=== PATIENT | female | born 1960 | race Caucasian/White ===

== ENCOUNTER 2017-03-07 08:44 | Emergency (ER) | payer OTHER ==
[2017-03-07 08:49] VITALS: BMI 24.6
--- NOTE | 2017-03-07 09:11 | PDOC ---
History of Present Illness - General History Source: Patient Exam Limitations: No Limitations - History of Present Illness Initial Comments: 03/07/17 09:35 The patient is a 56 year old female, with significant past medical history HLD, HTN, who presents today complaining of dizziness starting this morning. The patient states that she was drinking her morning coffee when she suddenly felt dizzy for less than a minute. She described the dizziness as the feeling you get when you come off of a rollercoaster. She reports that the dizziness subsided, but another episode occurred 5 minutes later. There was no fall or LOC , but she had brace herself against the wall. Denies LOC. Denies recent head injury or any trauma. Denies nausea, vomiting. Denies any recent illness. Denies chest pain, SOB, cough. Allergies: Sulfa PCP- Dr. Rosi Whiteside 03/07/17 09:59 <Brittany Arango - Last Filed: 03/07/17 10:59> <Mega Paris - Last Filed: 03/07/17 11:32> - General Chief Complaint: Lightheaded Stated Complaint: DIZZINESS Time Seen by Provider: 03/07/17 09:10 Past History <Brittany Arango - Last Filed: 03/07/17 10:59> - Past Medical History HTN: Yes Hypercholesterolemia: Yes - Surgical History Abdominal Surgery: Yes (colon polyps) - Psycho/Social/Smoking Cessation Hx Anxiety: No Suicidal Ideation: No Smoking History: Never smoked Have you smoked in the past 12 months: No Information on smoking cessation initiated: No Hx Alcohol Use: No Drug/Substance Use Hx: No Substance Use Type: None <Mega Paris - Last Filed: 03/07/17 11:32> - Past Medical History Allergies/Adverse Reactions: Allergies Allergy/AdvReac Type Severity Reaction Status Date / Time Sulfa (Sulfonamide Allergy Intermediate Rash Unverified 03/07/17 08:46 Antibiotics) Home Medications: Ambulatory Orders Hydrochlorothiazide 0 mg PO DAILY 03/07/17 Meclizine HCl [Antivert -] 25 mg PO TID #90 tablet 03/07/17 Simvastatin 20 mg PO HS 03/07/17 Review of Systems - Review of Systems Able to Perform ROS?: Yes Comments:: 03/07/17 09:36 GENERAL/CONSTITUTIONAL: No fever or chills. No weakness. HEAD, EYES, EARS, NOSE AND THROAT: No change in vision. No ear pain or discharge. No sore throat. CARDIOVASCULAR: No chest pain or shortness of breath. RESPIRATORY: No cough, wheezing, or hemoptysis. GASTROINTESTINAL: No nausea, vomiting, diarrhea or constipation. GENITOURINARY: No dysuria, frequency, or change in urination. MUSCULOSKELETAL: No joint or muscle swelling or pain. No neck or back pain. SKIN: No rash NEUROLOGIC: Yes: dizziness. No headache, vertigo, loss of consciousness, or change in strength/sensation. ENDOCRINE: No increased thirst. No abnormal weight change. HEMATOLOGIC/LYMPHATIC: No anemia, easy bleeding, or history of blood clots. ALLERGIC/IMMUNOLOGIC: No hives or skin allergy. <Brittany Arango - Last Filed: 03/07/17 10:59> *Physical Exam - Vital Signs Last Vital Signs Temp Pulse Resp BP Pulse Ox 98.0 F 82 18 154/86 100 03/07/17 08:46 03/07/17 08:46 03/07/17 08:46 03/07/17 08:46 03/07/17 08:46 - Physical Exam Comments: 03/07/17 09:36 GENERAL: Awake, alert, and fully oriented, in no acute distress HEAD: No signs of trauma EYES: +horizontal nystagmus. PERRLA, EOMI, sclera anicteric, conjunctiva clear ENT: Auricles normal inspection, hearing grossly normal, nares patent, oropharynx clear without exudates. Moist mucosa NECK: Normal ROM, supple, no lymphadenopathy, JVD, or masses LUNGS: Breath sounds equal, clear to auscultation bilaterally. No wheezes, and no crackles HEART: Regular rate and rhythm, normal S1 and S2, no murmurs, rubs or gallops ABDOMEN: Soft, nontender, normoactive bowel sounds. No guarding, no rebound. No masses EXTREMITIES: Normal range of motion, no edema. No clubbing or cyanosis. No cords , erythema, or tenderness NEUROLOGICAL: Cranial nerves II through XII grossly intact. Normal speech, normal gait SKIN: Warm, Dry, normal turgor, no rashes or lesions noted. <Brittany Arango - Last Filed: 03/07/17 10:59> - Vital Signs Last Vital Signs Temp Pulse Resp BP Pulse Ox 98.0 F 82 18 154/86 100 03/07/17 08:46 03/07/17 08:46 03/07/17 08:46 03/07/17 08:46 03/07/17 08:46 <Mega Paris - Last Filed: 03/07/17 11:32> Heart Score/ECG Review #1 General ECG Interpretation: Sinus Rhythm, Normal Rate, Normal Intervals Compared to previous ECG there are: Previous ECG unavail <Brittany Arango - Last Filed: 03/07/17 10:59> ED Treatment Course - LABORATORY CBC & Chemistry Diagram: 03/07/17 09:30 03/07/17 09:30 - RADIOLOGY Radiograph Interpretation: 03/07/17 10:16 EXAM#: TYPE/EXAM: RESULT: [id number] RAD/CHEST X-RAY PORTABLE* Clinical history: Vertigo and dizziness. COMPARISON: None. Seated portable chest film with rotation and poor aspiration is supplied. The heart is of normal size. The left lung is clear. The right lung shows mild platelike atelectasis at the left at the base. A small nodular density is seen overlying the lower portion of the second right anterior rib in the mid lung zone. It measures 4 mm and could represent a calcified granuloma or other nodule. Impression: Limited view without rotation and poor inspiration. 4 mm nodule right midlung zone. Possible calcified granuloma or other nodule. No prior studies available for comparison. Additional evaluation suggested. Reported By: Filipe Kaplan MD 03/07/17 0957 EXAM#: TYPE/EXAM: RESULT: [id number] CT/HEAD CT WITHOUT CONTRAST Vertigo and dizziness CT scan of the brain without intravenous contrast. Compared to prior CT scan of the head dated 11/19/2013 There is mild volume loss which is nonspecific. The ventricles and basal cisterns appear unremarkable. No gross mass lesion, focal infarct or intracranial hemorrhage is identified. Visualized paranasal sinuses and mastoid air cells are well-aerated. The calvarium is intact. Impression: No evidence of a focal intracranial lesion or hemorrhage seen. Reported By: Boni James MD 03/07/17 1054 <Brittany Arango - Last Filed: 03/07/17 10:59> - LABORATORY CBC & Chemistry Diagram: 03/07/17 09:30 03/07/17 09:30 <Mega Paris - Last Filed: 03/07/17 11:32> *DC/Admit/Observation/Transfer - Attestations Scribe Attestion: 03/07/17 09:36 Documentation prepared by LANA Leach, acting as medical collections specialist for Mega Paris DO. <Brittany Arango - Last Filed: 03/07/17 10:59> - Discharge Dispostion Admit: No - Attestations Physician Attestion: 03/07/17 09:11 I, Dr. Mega Paris, attest that this document has been prepared under my direction and personally reviewed by me in its entirety. I further attest, that it accurately reflects all work, treatment, procedures and medical decision -making performed by me. <Mega Paris - Last Filed: 03/07/17 11:32> Diagnosis at time of Disposition: Vertigo - Prescriptions Prescriptions: Meclizine HCl [Antivert -] 25 mg PO TID #90 tablet - Referrals Referrals: Rosi Whiteside [Primary Care Provider] - - Patient Instructions Printed Discharge Instructions: Benign Paroxysmal Positional Vertigo, DI for Vertigo Additional Instructions: Kristine- All of your test results were normal, (but we did see a small nodule on your CXR wich will need some follow up- take the report to your regular physician, they will know what to do). Neither of these problems should worry you. The vertigo could last up to six weeks, but it should respond to the antivert. The nodule on your CXR just needs follow up imaging to make certain that it is stable. See your doctor next week. Don't drive until your doctor says you can. Return to us if any problems. Best - Dr. Meag Paris
[2017-03-07] MEDS ORDERED: MECLIZINE HCL 25 MG TABLET (FP) PO ONE (09:29)
[2017-03-07 09:39] LABS: URINE APPEARANCE CLEAR; URINE BILIRUBIN NEGATIVE (NEGATIVE); URINE COLOR STRAW; URINE GLUCOSE (UA) NEGATIVE (NEGATIVE); URINE KETONE NEGATIVE (NEGATIVE); URINE LEUK ESTERASE NEGATIVE (NEGATIVE); URINE NITRITE NEGATIVE (NEGATIVE); URINE PROTEIN NEGATIVE (NEGATIVE); URINE UROBILINOGEN NEGATIVE E.U./dl (0.2-1.0)
[2017-03-07 09:43] LABS: URINE BLOOD 2+ (NEGATIVE)
[2017-03-07] MEDS ORDERED: MECLIZINE HCL 25 MG TABLET (FP) ONE (09:44)
[2017-03-07 09:48] LABS: BASOPHIL 0.5 % (0-2.0); EOSINOPHIL 0.5 % (0-4.5); MCH 29.5 pg (25.7-33.7); MCHC 34.8 g/dl (32.0-36.0); MEAN CELL VOLUME 84.9 fl (80-96); MEAN PLT VOLUME 7.2 fl (7.5-11.1); PLATELET COUNT 233 K/MM3 (134-434); RDW 13.2 % (11.6-15.6); WHITE BLOOD COUNT 7.9 K/mm3 (4.0-10.0)
[2017-03-07 10:02] LABS: URINE RBC 1 /hpf (0-3)
[2017-03-07 10:19] LABS: ALBUMIN 4.5 g/dl (3.4-5.0); ANION GAP 8 (8-16); BILIRUBIN,TOTAL 1.1 mg/dL (0.2-1.0); CALCIUM 9.7 mg/dL (8.5-10.1); CO2 25 mmol/L (21-32); CREATININE 0.8 mg/dL (0.55-1.02); GLUCOSE,RANDOM 115 mg/dL (74-106); SGOT/AST 20 U/L (15-37); SGPT/ALT 36 U/L (12-78); TOT PROT 7.9 g/dl (6.4-8.2)
[2017-03-07 10:21] LABS: ALK PHOS 97 U/L (45-117); TROPONIN I < 0.02 ng/ml (0.00-0.05)
--- NOTE | 2017-03-07 10:28 | EKG ---
Test Reason : Blood Pressure : / mmHG Vent. Rate : 073 BPM Atrial Rate : 073 BPM P-R Int : 146 ms QRS Dur : 084 ms QT Int : 378 ms P-R-T Axes : 039 044 039 degrees QTc Int : 416 ms NORMAL SINUS RHYTHM EARLY REPOLARIZATION NO PREVIOUS ECGS AVAILABLE Confirmed by LEONOR EDGAR MD ([id number]) on 03/07/2017 10:27:48 AM Referred By: Confirmed By:LEONOR DEGAR MD
[2017-03-07 11:51] VITALS: BP 125/89; PULSE 76; TEMP 97.9
== END 2017-03-07 11:45 | disposition home or self-care (01) ==
LOC: JER 08:44
DX: H81.10 Benign paroxysmal vertigo, unspecified ear (principal); I10 Essential (primary) hypertension; E78.00 Pure hypercholesterolemia, unspecified
CPT/HCPCS: 36415; 70450-TC; 71010-TC; 80053; 81003; 81015; 82550; 82553; 84484; 85025; 85610; 93005; 93010; 99283-25

== ENCOUNTER 2019-01-16 11:13 | Emergency (ER) | payer OTHER ==
[2019-01-16 11:28] VITALS: TEMP 98.1; BMI 24.4
--- NOTE | 2019-01-16 11:56 | PDOC ---
History of Present Illness - General Chief Complaint: Pain Stated Complaint: GAS PAIN /LEIGH EAR CLOGGED Time Seen by Provider: 01/16/19 11:55 - History of Present Illness Initial Comments: 01/16/19 12:18 The patient is a 58 year old female with a history of HTN, HLD, GERD who presents for evaluation of chest pressure. The patient reports onset of lower chest pressure and epigastric burning beginning this morning. She states that she felt that her blood pressure was elevated and experiencing associated bilateral ear pressure prompting her presentation to the ED for further evaluation. The patient reports that her epigastric pain feels similar to her GERD, however the chest pressure is new. She otherwise denies fevers, chills, SOB, nausea, vomiting, abdominal pain, headache, numbness, tingling, weakness, or changes with urination or bowel movements. Past History - Past Medical History Allergies/Adverse Reactions: Allergies Allergy/AdvReac Type Severity Reaction Status Date / Time Sulfa (Sulfonamide Allergy Intermediate Rash Verified 01/16/19 11:19 Antibiotics) Home Medications: Ambulatory Orders Hydrochlorothiazide 12.5 mg PO DAILY 03/07/17 Meclizine HCl [Antivert -] 25 mg PO TID #90 tablet 03/07/17 Omeprazole 20 mg PO PRN PRN 01/16/19 Rosuvastatin [Crestor -] 10 mg PO DAILY 01/16/19 COPD: No HTN: Yes Hypercholesterolemia: Yes - Surgical History Abdominal Surgery: Yes (colon polyps) - Suicide/Smoking/Psychosocial Hx Smoking History: Never smoked Have you smoked in the past 12 months: No Hx Alcohol Use: No Drug/Substance Use Hx: No Substance Use Type: None Review of Systems - Review of Systems Comments:: 01/16/19 12:21 Constitutional: No fevers, chills, fatigue, malaise HEENT: Bilateral Ear Pressure No Rhinorrhea, nasal congestion, visual changes Cardiovascular: Chest pressure. No syncope, palpitations, lightheadedness Respiratory: No Cough, SOB, Hemoptysis, Gastrointestinal: Epigastric Abdominal pain. No Nausea, Vomiting, Constipation , Diarrhea, Melena Genitourinary: No Dysuria, Frequency, Urgency, Hesitancy, Hematuria, Flank pain Musculoskeletal: No Myalgia, arthralgia Skin: No rashes, itching, bruising, pallor Neurologic: No Headache, Dizziness, Numbness, Weakness, or Tingling Psychiatric: No Hallucinations. No SI or HI *Physical Exam - Vital Signs Last Vital Signs Temp Pulse Resp BP Pulse Ox 98.1 F 81 18 174/84 H 97 01/16/19 11:26 01/16/19 11:26 01/16/19 11:26 01/16/19 11:01/16/19 11:26 - Physical Exam Comments: 01/16/19 12:21 General Appearance: Nourished. No Apparent Distress HEENT: EOMI, LEEANN. TMs Normal. No Pharyngeal Erythema, Tonsillar Exudate, Tonsillar Erythema Neck: No Cervical Lymphadenopathy Respiratory/Chest: Lungs Clear, Normal Breath Sounds. No Crackles, Rales, Rhonchi, Wheezing Cardiovascular: Regular Rhythm, Regular Rate. No Murmur, Gallops, Rubs Gastrointestinal/Abdominal: Normal Bowel Sounds, Soft. No Guarding, Rebound, Tenderness Musculoskeletal: No CVA Tenderness Extremity: Normal Capillary Refill Integumentary: Normal Color, Dry, Warm Neurologic: Fully Oriented, Alert, Normal Mood/Affect, Normal Response, Heart Score/ECG Review #1 ECG reviewed & interpreted by me at: 12:22 General ECG Interpretation: Sinus Rhythm, Normal Rate, Normal Intervals, No acute ischemic changes ED Treatment Course - LABORATORY CBC & Chemistry Diagram: 01/16/19 12:20 01/16/19 12:20 Medical Decision Making - Medical Decision Making 01/16/19 12:22 The patient is a 58 year old female with a history of HTN, HLD, GERD who presents for evaluation of chest pressure. Differential includes but is not limited to: ACS, Gastritis, Infectious, Metabolic Derangement. Given the patient's history and physical exam, we will obtain a cbc, cmp, troponin x2, lipase, ekg, chest plain film to evaluate further. We will treat with iv fluids , pepcid and continue to monitor and reassess while here in the ED. 01/16/19 18:40 CBC, cmp, troponin x2, lipase are unremarkable. Chest plain film is unremarkable. The patient was reassessed and reports improvement in their symptoms. We are comfortable discharging the patient home in stable condition. Patient and family made aware of impression and plan, return precautions discussed including but not limited to worsening pain or symptoms, fevers, or signs of infection, chest pain, respiratory distress, inability to tolerate oral intake, dehydration, syncope, or neurologic changes. The patient is to follow up with PMD and specialist as recommended within 1 week, follow up information provided and the patient will call for an appointment. The patient is to take medications as instructed for duration of time and continue with supportive care, avoid triggers and precipitants. Patient is safe for outpatient follow-up. *DC/Admit/Observation/Transfer Diagnosis at time of Disposition: Chest pain Qualifiers: Chest pain type: unspecified Qualified Code(s): R07.9 - Chest pain, unspecified - Discharge Dispostion Disposition: HOME Condition at time of disposition: Stable Decision to Admit order: No - Referrals Referrals: Amaury Darling MD [Staff Physician] - - Patient Instructions Printed Discharge Instructions: DI for Atypical Chest Pain Additional Instructions: 1) Please follow-up with your primary care doctor and our Re Recording Mixer in the next 2-3 days. Please call tomorrow to schedule a follow up appointment. If you cannot follow up with your doctor within 1 week please return to the Emergency Department for any urgent issues. 2) Your laboratory / imaging results were normal here in the ER. 3) If you have any worsening of symptoms or any other concerns please return to the ER immediately. Return if worsening symptoms including fevers, headache, vomiting, visual or hearing disturbances, abdominal pain, chest pain, shortness of breath, syncope, dehydration, inability to take things by mouth/vomiting, altered mental status, or worsening concerning symptoms. 4) Please continue taking your home medications as directed. - Post Discharge Activity
[2019-01-16] MEDS ORDERED: SODIUM CHLORIDE 1,000 ML IV STA (12:01)
[2019-01-16] MEDS ORDERED: FAMOTIDINE 20 MG/50 ML IVPB 20 MG/50 ML MG IVPB ONE (12:01)
[2019-01-16 12:38] LABS: BASO % 0.5 % (0-2.0); EOS % 1.4 % (0-4.5); HEMATOCRIT 41.2 % (32.4-45.2); HEMOGLOBIN 13.9 GM/dL (10.7-15.3); LYMPH % 21.6 % (8-40); MCH 28.8 pg (25.7-33.7); MCHC 33.7 g/dl (32.0-36.0); MEAN CELL VOLUME 85.4 fl (80-96); MEAN PLT VOLUME 7.5 fl (7.5-11.1); MONO % 4.3 % (3.8-10.2); NEUT % 72.2 % (42.8-82.8); PLATELET COUNT 261 K/MM3 (134-434); RBC 4.82 M/mm3 (3.60-5.2); RDW 13.4 % (11.6-15.6)
--- NOTE | 2019-01-16 12:45 | PDOC ---
Documentation entered by Bertrand Sen SCRIBE, acting as scribe for Flo Mooney MD. Flo Mooney MD: This documentation has been prepared by the Francy castillo Nirvannie, SCRIBE, under my direction and personally reviewed by me in its entirety. I confirm that the documentation accurately reflects all work, treatment, procedures, and medical decision making performed by me. Attending Attestation - Resident Resident Name: Norm Vick - ED Attending Attestation I have performed the following: I have examined & evaluated the patient, The case was reviewed & discussed with the resident, I agree w/resident's findings & plan, Exceptions are as noted - HPI HPI: 01/16/19 13:27 The patient is a 58 year old female, with a significant past medical history of HTN, HLD, vertigo, and GERD, who presents to the emergency department with, chest pressure onsetting this morning with associated epigastric burning and ear pressure. Patient notes her epigastric burning to be similar to her prior episodes of GERD, however, the chest pain is new prompting her arrival to the ED. She denies recent fevers, chills, headache or dizziness. She denies recent nausea, vomit, diarrhea or constipation. She denies recent dysuria, frequency, urgency or hematuria. Allergies: Sulfa - Physicial Exam PE: 01/16/19 13:27 GENERAL: Awake, alert, and fully oriented, in no acute distress HEAD: No signs of trauma ENT: Auricles normal inspection, hearing grossly normal. NECK: Normal ROM, supple, no lymphadenopathy, JVD, or masses LUNGS: Breath sounds equal, clear to auscultation bilaterally. No wheezes, and no crackles HEART: Regular rate and rhythm, normal S1 and S2, no murmurs, rubs or gallops ABDOMEN: Soft, nontender. No guarding, no rebound. EXTREMITIES: Normal range of motion, no edema. No clubbing or cyanosis. No cords, erythema, or tenderness NEUROLOGICAL: Cranial nerves II through XII grossly intact. Normal speech. SKIN: Warm, Dry, normal turgor, no rashes or lesions noted. - Medical Decision Making 01/16/19 12:45 A portion of this note was documented by [employer] under my direction. I have reviewed the details of the note, within reason, and agree with the documentation with the following case summary and management plan written by me. Patient treated in the ED. Nursing notes are reviewed and incorporated into the medical decision-making. Vital signs reviewed. Peripheral IV access obtained by the nurse, laboratory studies are drawn and sent, reviewed and interpreted by myself. Vital Signs Temp Pulse Resp BP Pulse Ox 98.1 F 81 18 174/84 H 97 01/16/19 11:26 01/16/19 11:26 01/16/19 11:26 01/16/19 11:26 01/16/19 11:26 58-year-old female history of hypertension, hyperlipidemia presents with chest discomfort. Patient reports she history of gastritis. This morning, she felt this chest discomfort and epigastric discomfort but no nausea or vomiting. No fevers or chills. Patient reported that her pain has subsided was concerned for cardiac disease as her mother had heart disease at the age of 50. Patient's EKG is normal. The patient is no exertional component. It is less likely to be acute coronary syndrome or [place] but we'll obtain 2 serial troponins. I suspect this may be gastritis. We'll trial GERD medications and reassess. If 2 troponins are negative and the workup is unremarkable the patient feels better , the patient be discharged with outpatient cartilage follow-up and GI follow- up. 01/16/19 13:32 Chest xray reviewed. No acute findings. CBC, BMP 01/16/19 12:20 01/16/19 12:20 CMP Sodium 140 mmol/L (136-145) 01/16/19 12:20 Potassium 3.9 mmol/L (3.5-5.1) 01/16/19 12:20 Chloride 107 mmol/L (98-107) 01/16/19 12:20 Carbon Dioxide 27 mmol/L (21-32) 01/16/19 12:20 Anion Gap 5 MMOL/L (8-16) L 01/16/19 12:20 BUN 13 mg/dL (7-18) 01/16/19 12:20 Creatinine 0.7 mg/dL (0.55-1.3) 01/16/19 12:20 Creat Clearance w eGFR 85.95 (>60) 01/16/19 12:20 Random Glucose 103 mg/dL (74-106) 01/16/19 12:20 Calcium 9.4 mg/dL (8.5-10.1) 01/16/19 12:20 Total Bilirubin 0.9 mg/dL (0.2-1) 01/16/19 12:20 AST 21 U/L (15-37) 01/16/19 12:20 ALT 36 U/L (13-61) 01/16/19 12:20 Alkaline Phosphatase 92 U/L (45-117) 01/16/19 12:20 Creatine Kinase 120 U/L (26-192) 01/16/19 12:20 Troponin I < 0.02 ng/ml (0.00-0.05) 01/16/19 12:20 Total Protein 7.4 g/dl (6.4-8.2) 01/16/19 12:20 Albumin 4.2 g/dl (3.4-5.0) 01/16/19 12:20 Lipase 196 U/L (73-393) 01/16/19 12:20 01/16/19 16:23 2nd trop negative. Heart Score/ECG Review - History History: Slightly suspicious - Electrocardiogram EKG: Normal - Age Age: 45-65 - Risk Factors Risk Factors Heart Score: Yes Hx Hypercholesterolemia, Yes Hx Hypertension Based on the list above the patient has:: 1-2 risk factors #1 ECG reviewed & interpreted by me at: 15:00 01/16/19 12:19 NSR 71, no std/travis, normal axis, normal intervals, QTC 404 msec. Normal ECG
[2019-01-16 13:05] LABS: ALBUMIN 4.2 g/dl (3.4-5.0); ALK PHOS 92 U/L (45-117); ANION GAP 5 MMOL/L (8-16); BILIRUBIN,TOTAL 0.9 mg/dL (0.2-1); BLOOD UREA NITROGEN 13 mg/dL (7-18); CALCIUM 9.4 mg/dL (8.5-10.1); CHLORIDE 107 mmol/L (98-107); CO2 27 mmol/L (21-32); CREATININE 0.7 mg/dL (0.55-1.3); GLUCOSE,RANDOM 103 mg/dL (74-106); LIPASE 196 U/L (73-393); POTASSIUM 3.9 mmol/L (3.5-5.1); SGOT/AST 21 U/L (15-37); SGPT/ALT 36 U/L (13-61); SODIUM 140 mmol/L (136-145); TOT PROT 7.4 g/dl (6.4-8.2)
[2019-01-16 16:24] VITALS: BP 129/77; PULSE 70
--- NOTE | 2019-01-17 09:20 | EKG ---
Test Reason : Blood Pressure : / mmHG Vent. Rate : 071 BPM Atrial Rate : 071 BPM P-R Int : 158 ms QRS Dur : 088 ms QT Int : 372 ms P-R-T Axes : 047 052 046 degrees QTc Int : 404 ms NORMAL SINUS RHYTHM NORMAL ECG WHEN COMPARED WITH ECG OF 07-MAR-2017 09:49, NO SIGNIFICANT CHANGE WAS FOUND Confirmed by JAMAL KING MD ([id number]) on 01/17/2019 9:19:46 AM Referred By: Confirmed By:JAMAL KING MD
== END 2019-01-16 16:44 | disposition home or self-care (01) ==
LOC: JER 11:13
PROC: 3E033GC Introduction of Other Therapeutic Substance into Peripheral Vein, Percutaneous Approach (ICD-10-PCS; principal; 2019-01-16)
DX: R07.9 Chest pain, unspecified (principal); I10 Essential (primary) hypertension; E78.00 Pure hypercholesterolemia, unspecified; Z86.010 Personal history of colon polyps
CPT/HCPCS: 36415; 71045-TC-FY; 80053; 82550; 83690; 84484; 85025; 93005; 93010; 96365; 99284-25; J7030

== ENCOUNTER 2021-02-01 05:12 | Day surgery (SDC) | payer OTHER ==
[2021-01-30 15:51] VITALS: BMI 24.6
[2021-02-01 11:26] VITALS: TEMP 97.5
[2021-02-01 12:32] VITALS: BP 103/64; PULSE 64
== END 2021-02-01 12:13 | disposition home or self-care (01) ==
LOC: JASU-ENDO 05:12
PROVIDERS: ATTEND Internal Medicine Gastroenterology
PROC: 0DB78ZX Excision of Stomach, Pylorus, Via Natural or Artificial Opening Endoscopic, Diagnostic (ICD-10-PCS; principal; 2021-02-01 10:45)
DX: K29.70 Gastritis, unspecified, without bleeding (principal); K21.9 Gastro-esophageal reflux disease without esophagitis
CPT/HCPCS: 88305-TC; 88342-TC

== ENCOUNTER 2021-07-12 13:13 | Emergency (ER) | payer OTHER ==
[2021-07-12 13:46] VITALS: TEMP 98.7; BMI 23.4
[2021-07-12] MEDS ORDERED: FAMOTIDINE 10 MG TABLET PO ONE (14:30)
[2021-07-12] MEDS ORDERED: MAG HYDROX/AL HYDROX/SIMETH 30 ML UNIT-DOSE CUP PO ONE (14:30)
[2021-07-12] MEDS ORDERED: MAG HYDROX/AL HYDROX/SIMETH 30 ML UNIT-DOSE CUP ONE (14:44)
[2021-07-12] MEDS ORDERED: FAMOTIDINE 10 MG TABLET ONE (14:44)
[2021-07-12 15:15] LABS: BASO % 0.5 % (0-2.0); EOS % 0.4 % (0-4.5); HEMATOCRIT 41.3 % (32.4-45.2); HEMOGLOBIN 14.9 GM/dL (10.7-15.3); LYMPH % 14.5 % (8-40); MCH 30.4 pg (25.7-33.7); MEAN CELL VOLUME 84.4 fl (80-96); MEAN PLT VOLUME 7.2 fl (7.5-11.1); MONO % 3.3 % (3.8-10.2); NEUT % 81.3 % (42.8-82.8); PLATELET COUNT 271 10^3/uL (134-434); RBC 4.89 M/mm3 (3.60-5.2); RDW 13.1 % (11.6-15.6); WHITE BLOOD COUNT 7.3 K/mm3 (4.0-10.0)
[2021-07-12 15:33] LABS: CHLORIDE 105 mmol/L (98-107); SODIUM 138 mmol/L (136-145)
[2021-07-12 15:35] LABS: ALBUMIN 4.4 g/dl (3.4-5.0); ANION GAP 11 MMOL/L (8-16); BLOOD UREA NITROGEN 14.1 mg/dL (7-18); CALCIUM 10.2 mg/dL (8.5-10.1); CO2 22 mmol/L (21-32)
[2021-07-12 15:36] LABS: GLUCOSE,RANDOM 105 mg/dL (74-106)
[2021-07-12 15:38] LABS: CREATININE 0.6 mg/dL (0.55-1.3); SGOT/AST 23 U/L (15-37); SGPT/ALT 36 U/L (13-61)
[2021-07-12 15:40] LABS: BILIRUBIN,TOTAL 0.9 mg/dL (0.2-1); TOT PROT 7.8 g/dl (6.4-8.2)
[2021-07-12 15:41] LABS: ALK PHOS 85 U/L (45-117)
[2021-07-12] MEDS ORDERED: POTASSIUM CHLORIDE ORAL LIQUID 20 MEQ/15 ML PO ONE (15:53)
[2021-07-12] MEDS ORDERED: POTASSIUM CHLORIDE ORAL LIQUID 20 MEQ/15 ML ONE (16:18)
[2021-07-12 20:12] LABS: URINE APPEARANCE CLEAR; URINE BILIRUBIN NEGATIVE (NEGATIVE); URINE COLOR YELLOW; URINE GLUCOSE (UA) NEGATIVE (NEGATIVE); URINE KETONE NEGATIVE (NEGATIVE)
[2021-07-12 20:13] LABS: URINE LEUK ESTERASE TRACE (NEGATIVE); URINE NITRITE NEGATIVE (NEGATIVE); URINE PROTEIN NEGATIVE (NEGATIVE); URINE UROBILINOGEN 0.2 mg/dL (0.2-1.0)
[2021-07-12 20:20] LABS: URINE WBC 0-1 (NEGATIVE)
[2021-07-12 20:21] LABS: HYALINE CASTS 0 /lpf; URINE BACTERIA FEW /hpf (NEGATIVE)
[2021-07-12 20:47] VITALS: BP 136/76; PULSE 72
== END 2021-07-12 20:40 | disposition home or self-care (01) ==
LOC: JER 13:13
DX: R07.9 Chest pain, unspecified (principal)
CPT/HCPCS: 36415; 71046-TC-FY; 80053; 81003; 82550; 82553; 84484; 85025; 87077; 87086; 93005; 93010; 93971-TC; 99285-25

== ENCOUNTER 2022-03-22 04:47 | Day surgery (SDC) | payer BC, OTHER ==
[2022-03-15 13:22] VITALS: BMI 23.8
[2022-03-22] MEDS ORDERED: LIDOCAINE HCL 1%, 10 MG/ML (20ML VIAL) ONE (12:40)
[2022-03-22] MEDS ORDERED: BUPIVACAINE HCL/PF 0.25% (2.5MG/ML) 10 ML VIAL ONE (12:40)
[2022-03-22] MEDS ORDERED: BUPIVACAINE HCL/PF 0.25% (2.5MG/ML) 10 ML VIAL IJ ONE ×3 (13:20→14:13)
[2022-03-22] MEDS ORDERED: LIDOCAINE HCL 1%, 10 MG/ML (20ML VIAL) NR ONE ×3 (13:20→14:13)
[2022-03-22] MEDS ORDERED: MIDAZOLAM HCL 2 MG/2 ML SINGLE DOSE VIAL ONE (13:32)
[2022-03-22] MEDS ORDERED: ceFAZolin SODIUM 1 GM VIAL IVPB ONE (13:45)
[2022-03-22] MEDS ORDERED: PROPOFOL 20 ML ONE (16:37)
[2022-03-22] MEDS ORDERED: ONDANSETRON 4 MG/2 ML VIAL IVPUSH PRN (17:24)
[2022-03-22] MEDS ORDERED: oxyCODONE HCL 5 MG TABLET PO PRN (17:24)
[2022-03-22] MEDS ORDERED: FENTANYL CITRATE/PF 50 MCG/ML VIAL ONE (17:29)
[2022-03-22] MEDS ORDERED: LACTATED RINGERS SOLUTION 1,000 ML IV SCH (17:30)
[2022-03-22 18:41] VITALS: TEMP 96.9
[2022-03-22 19:16] VITALS: BP 122/68; PULSE 80
== END 2022-03-22 19:10 | disposition home or self-care (01) ==
LOC: JASU-SURG 04:47
PROVIDERS: ATTEND Podiatrist Foot Surgery
PROC: 0QBL0ZZ Excision of Right Tarsal, Open Approach (ICD-10-PCS; 2022-03-22)
PROC: 0QSN04Z Reposition Right Metatarsal with Internal Fixation Device, Open Approach (ICD-10-PCS; 2022-03-22)
PROC: 0SGK07Z Fusion of Right Tarsometatarsal Joint with Autologous Tissue Substitute, Open Approach (ICD-10-PCS; principal; 2022-03-22 13:00)
DX: M20.11 Hallux valgus (acquired), right foot (principal)
CPT/HCPCS: 20900; 28297; 28740; C1713; 88304-TC; 88311-TC; 94760

== ENCOUNTER 2023-04-11 05:16 | Day surgery (SDC) | payer BC, OTHER ==
[2023-04-07 12:12] VITALS: BMI 25.4
[2023-04-11] MEDS ORDERED: MIDAZOLAM HCL 2 MG/2 ML SINGLE DOSE VIAL ONE (12:30)
[2023-04-11] MEDS ORDERED: PROPOFOL 20 ML ONE (12:30)
[2023-04-11] MEDS ORDERED: BUPIVACAINE HCL/PF 0.5% (5MG/ML) 10 ML VIAL ONE (12:46)
[2023-04-11] MEDS ORDERED: ceFAZolin SODIUM 1 GM VIAL IVPB ONE ×2 (12:53)
[2023-04-11] MEDS ORDERED: LIDOCAINE HCL 1%, 10 MG/ML (20ML VIAL) INF ONE (12:53)
[2023-04-11] MEDS ORDERED: ceFAZolin SODIUM 1 GM VIAL ONE (13:08)
[2023-04-11] MEDS ORDERED: BUPIVACAINE HCL/PF 0.5% (5MG/ML) 10 ML VIAL IJ ONE (16:51)
[2023-04-11] MEDS ORDERED: oxyCODONE HCL 5 MG TABLET PO PRN ×2 (17:18)
[2023-04-11] MEDS ORDERED: ONDANSETRON 4 MG/2 ML VIAL IVPUSH PRN (17:18)
[2023-04-11] MEDS ORDERED: PROMETHAZINE HCL 25 MG/1 ML VIAL IVPB PRN (17:18)
[2023-04-11] MEDS ORDERED: ACETAMINOPHEN 1000 MG/100 ML BAG IVPB ONE ×2 (17:19→17:23)
[2023-04-11] MEDS ORDERED: LACTATED RINGERS SOLUTION 1,000 ML IV SCH (17:30)
[2023-04-11] MEDS ORDERED: oxyCODONE HCL 5 MG TABLET ONE (19:14)
[2023-04-11 19:21] VITALS: RESP 20; TEMP 97.2
[2023-04-11 19:39] VITALS: BP 133/77; PULSE 89
== END 2023-04-11 19:44 | disposition home or self-care (01) ==
LOC: JASU-SURG 05:16
PROVIDERS: ATTEND Podiatrist Foot Surgery
PROC: 0SSN0ZZ Reposition Left Metatarsal-Phalangeal Joint, Open Approach (ICD-10-PCS; principal; 2023-04-11 12:27)
DX: M20.12 Hallux valgus (acquired), left foot (principal); M21.6X2 Other acquired deformities of left foot
CPT/HCPCS: 76000-TC-FY; 88305-TC; 88311-TC; 94760; C1713; C1889